=== PATIENT | female | born 1935 | race Two or more races ===

== ENCOUNTER 2024-02-07 15:12 | Inpatient (IN) | payer MEDICARE, OTHER ==
[~2024-02-07] VITALS: Ht 166.4 cm; Wt 66.8 kg
[2024-02-07 16:21] LABS: Urine Bacteria None Seen /hpf (None Seen)
[2024-02-07 16:34] VITALS: PULSE 77; RESP 18; O2SAT 93
[2024-02-07] MEDS: ONDANSETRON HCL 4 MG/2 ML VIAL IV ONE (16:49)
[2024-02-07] MEDS: fentaNYL CITRATE 100 MCG/2 ML VL IV ONE ×3 (16:50→20:26)
[2024-02-07 17:07] LABS: Urine Blood Negative /uL (Negative); Urine Clarity Clear (Clear); Urine Color Light-Yellow (Yellow); Urine Protein, UAD Negative (Negative); Urine Specific Gravity 1.014 (1.001-1.035); Urine Urobilinogen Normal (Negative); Urine WBC 1 /hpf (0 - 5); Urine pH 5.5 (5.0-9.0)
[2024-02-07 17:26] LABS: Basophils # (auto) 0 10 ^3/uL (0-0.2); Basophils % (auto) 0.1 % (0.0-2.0); Eosinophils # (auto) 0.2 10 ^3/uL (0-0.8); Eosinophils % (auto) 2.3 % (0.0-7.0); Hematocrit 42.8 % (36.0-46.0); Hemoglobin 14.7 g/dL (12.2-16.2); Lymphocytes # (auto) 1.3 10 ^3/uL (0.4-5.4); Lymphocytes % (auto) 14.7 % (10.0-50.0); Mean Corpuscular Hemoglobin 31.2 pg (28.0-32.0); Mean Corpuscular Hgb Conc. 34.3 g/dL (32.0-36.0); Monocytes # (auto) 0.6 10 ^3/uL (0-1.3); Monocytes % (auto) 6.6 % (0.0-12.0); Neutrophils # (auto) 6.9 10 ^3/uL (1.6-8.6); Neutrophils % (auto) 76.3 % (37.0-80.0); Platelet Count (auto) 327 10^3/uL (140-450); Red Cell Distribution Width 13.1 % (11.8-14.3)
[2024-02-07 17:46] LABS: Alanine Aminotransferase 28 U/L (7-40); Albumin 4.4 g/dL (3.2-4.8); Alkaline Phosphatase 61 U/L (46-116); Anion Gap 6 (5-15); Aspartate Aminotransferase 36 U/L (13-40); BUN/Creatinine Ratio 23.4 (10.0-20.0); Bilirubin, Total 0.5 mg/dL (0.2-1.0); Blood Urea Nitrogen 18 mg/dL (9-23); Calcium 9.8 mg/dL (8.7-10.4); Carbon Dioxide 25 mmol/L (20-31); Chloride 104 mmol/L (98-107); Glucose 144 mg/dL (74-106); Potassium 4.2 mmol/L (3.5-5.1); Sodium 135 mmol/L (136-145); Total Protein 7.7 g/dL (5.7-8.2)
[2024-02-07] MEDS ORDERED: CARV6.2517 PO (19:07)
[2024-02-07] MEDS ORDERED: CLON0.1T PO (19:07)
[2024-02-07] MEDS ORDERED: VALS40TA2 PO (19:07)
[2024-02-07] MEDS ORDERED: MECL-90 PO (19:11)
[2024-02-07] MEDS ORDERED: MULTTAB99 PO (19:11)
[2024-02-07] MEDS ORDERED: LEVO50TA7 PO (19:11)
[2024-02-07] MEDS ORDERED: OMEG-20 PO (19:11)
[2024-02-07] MEDS ORDERED: ASPI1TAB20 PO (19:11)
[2024-02-07] MEDS ORDERED: CHOL20007 PO (19:11)
[2024-02-07] MEDS ORDERED: FENO160T PO (19:11)
[2024-02-07] MEDS ORDERED: CALCTAB63 PO (19:13)
[2024-02-07] MEDS ORDERED: ZINC100T5 PO (19:13)
[2024-02-07] MEDS ORDERED: BENF150C PO (19:14)
[2024-02-07] MEDS ORDERED: [UNRECOGNIZED DRUG - CODE] PO (19:18)
[2024-02-07 20:30] VITALS: PULSE 84; RESP 16; O2SAT 96
[2024-02-07] MEDS: SODIUM CHLORIDE 0.9% 1,000 ML IV SCH (22:15)
[2024-02-08] VITALS (7 sets, daily range): BP systolic 126–162; BP diastolic 54–68; PULSE 65–81; RESP 16–19; TEMP 97.9–98.7; O2SAT 92–100
[2024-02-08] MEDS: MORPHINE SULFATE INJ 2 MG/ml SYRG IV PRN ×2 (00:12→16:49)
[2024-02-08] MEDS: MORPHINE SULFATE 4 MG/ML SYR/VIAL IV ONE (01:43)
[2024-02-08] MEDS: ONDANSETRON HCL 4 MG/2 ML VIAL IV PRN (01:44)
[2024-02-08 02:13] LABS: Anion Gap 5 (5-15); Carbon Dioxide 27 mmol/L (20-31); Chloride 103 mmol/L (98-107); Potassium 4.2 mmol/L (3.5-5.1); Sodium 135 mmol/L (136-145)
[2024-02-08 02:14] LABS: Calcium 9.7 mg/dL (8.7-10.4)
[2024-02-08 02:19] LABS: BUN/Creatinine Ratio 17.9 (10.0-20.0); Blood Urea Nitrogen 12 mg/dL (9-23); Glucose 165 mg/dL (74-106)
[2024-02-08] MEDS: hydrALAZINE HCL 20 MG/ML VL IV PRN (03:57)
[2024-02-08] MEDS ORDERED: ACET-1080 PO (04:06)
[2024-02-08] MEDS: VALSARTAN 80 MG TAB PO ONE (21:53)
[2024-02-09 01:00] VITALS: BP 151/60; PULSE 75; RESP 17; TEMP 98.6; O2SAT 93
[2024-02-09 05:00] VITALS: BP 128/74; PULSE 72; RESP 18; TEMP 98.3; O2SAT 9
[2024-02-09 08:35] VITALS: BP 153/69; PULSE 77; RESP 18; TEMP 97.5; O2SAT 97
[2024-02-09] MEDS ORDERED: MORPHINE SULF PF 5 MG/10 ML VIAL ONE (09:31)
[2024-02-09] MEDS ORDERED: KETOROLAC TROMETH 30 MG/ML 1ML VIAL ONE (09:31)
[2024-02-09 12:47] VITALS: BP 126/62; PULSE 82; RESP 17; TEMP 97.5; O2SAT 98
[2024-02-09 20:00] VITALS: PULSE 83; RESP 18; O2SAT 90
[2024-02-09 20:50] VITALS: BP 170/83; PULSE 83; RESP 18; TEMP 98.9; O2SAT 90
[2024-02-10] VITALS (7 sets, daily range): BP systolic 130–175; BP diastolic 69–85; PULSE 63–90; RESP 16–20; TEMP 97.9–98.7; O2SAT 90–100
[2024-02-10 07:01] LABS: INR 1.06 (0.9-1.15); Partial Thromboplastin Time 29.3 SEC (24.5-34.5); Prothrombin Time 11.2 sec (9.3-11.8)
[2024-02-10] MEDS ORDERED: MORPHINE SULF PF 5 MG/10 ML VIAL ONE (14:57)
[2024-02-10] MEDS ORDERED: KETOROLAC TROMETH 30 MG/ML 1ML VIAL ONE (14:57)
[2024-02-10] MEDS ORDERED: MIDAZOLAM HCL 2MG/2ML 2ml VIAL (1mg/ml) ONE (15:16)
[2024-02-10] MEDS ORDERED: fentaNYL CITRATE 100 MCG/2 ML VL ONE (15:17)
[2024-02-10] MEDS ORDERED: ONDANSETRON HCL 4 MG/2 ML VIAL ONE (15:52)
[2024-02-10] MEDS ORDERED: DexAMETHasone SOD PHOS 10MG/1ML VIAL INJ ONE (15:52)
[2024-02-10] MEDS: ceFAZolin 1GM/50ML 50 ML IV SCH (18:23)
[2024-02-11] VITALS (7 sets, daily range): BP systolic 146–162; BP diastolic 59–71; PULSE 84–110; RESP 16–20; TEMP 97.3–99.8; O2SAT 91–98
[2024-02-11] MEDS: ACETAMINOPHEN 325 MG TAB PO PRN (00:35)
[2024-02-11] MEDS: ENOXAPARIN SOD 40 MG/0.4 ML SYRINGE SC SCH (10:05)
[2024-02-11 12:02] LABS: Basophils # (auto) 0 10 ^3/uL (0-0.2); Basophils % (auto) 0.1 % (0.0-2.0); Eosinophils # (auto) 0.1 10 ^3/uL (0-0.8); Eosinophils % (auto) 0.7 % (0.0-7.0); Hemoglobin 13.6 g/dL (12.2-16.2); Lymphocytes # (auto) 2.1 10 ^3/uL (0.4-5.4); Lymphocytes % (auto) 11.7 % (10.0-50.0); Mean Corpuscular Hemoglobin 31.2 pg (28.0-32.0); Mean Corpuscular Volume 91.7 fL (80.0-100.0); Monocytes # (auto) 1.2 10 ^3/uL (0-1.3); Monocytes % (auto) 6.7 % (0.0-12.0); Neutrophils # (auto) 14.5 10 ^3/uL (1.6-8.6); Neutrophils % (auto) 80.8 % (37.0-80.0); Platelet Count (auto) 394 10^3/uL (140-450); Red Blood Cells 4.37 10^6/uL (4.0-5.20); Red Cell Distribution Width 13.4 % (11.8-14.3)
[2024-02-11] MEDS: HYDROcodone-ACET 5/325MG TAB PO PRN (18:31)
[2024-02-12] VITALS (7 sets, daily range): BP systolic 99–176; BP diastolic 54–69; PULSE 54–92; RESP 17–20; TEMP 97.7–99.5; O2SAT 93–99
[2024-02-12 06:42] LABS: Basophils # (auto) 0 10 ^3/uL (0-0.2); Basophils % (auto) 0.2 % (0.0-2.0); Eosinophils # (auto) 0.4 10 ^3/uL (0-0.8); Eosinophils % (auto) 3.2 % (0.0-7.0); Hematocrit 34.6 % (36.0-46.0); Hemoglobin 11.5 g/dL (12.2-16.2); Lymphocytes # (auto) 1.4 10 ^3/uL (0.4-5.4); Lymphocytes % (auto) 12.8 % (10.0-50.0); Mean Corpuscular Hemoglobin 30.8 pg (28.0-32.0); Mean Corpuscular Hgb Conc. 33.1 g/dL (32.0-36.0); Mean Corpuscular Volume 92.9 fL (80.0-100.0); Monocytes # (auto) 0.8 10 ^3/uL (0-1.3); Monocytes % (auto) 7.7 % (0.0-12.0); Neutrophils # (auto) 8.4 10 ^3/uL (1.6-8.6); Neutrophils % (auto) 76.1 % (37.0-80.0); Nucleated Red Blood Cells % 0.1 %; Platelet Count (auto) 276 10^3/uL (140-450); Red Blood Cells 3.73 10^6/uL (4.0-5.20); Red Cell Distribution Width 13.3 % (11.8-14.3)
[2024-02-12] MEDS ORDERED: HYDR-4902 PO (11:40)
[2024-02-12] MEDS ORDERED: RIVA10TA PO (11:40)
[2024-02-13 01:00] VITALS: BP 176/71; PULSE 89; RESP 19; TEMP 99; O2SAT 96
[2024-02-13 05:00] VITALS: BP 152/57; PULSE 80; RESP 19; TEMP 98.2; O2SAT 97
[2024-02-13] MEDS: TRANEXAMIC ACID 20 ML ONE ×2 (07:49→07:50)
[2024-02-13] MEDS: BUPIVACAINE 0.25% INJ 50ML VIAL ONE ×2 (07:49→07:50)
[2024-02-13] MEDS: ceFAZolin 1GM/50ML 100 ML IV ONE (07:50)
[2024-02-13] MEDS: ROPIVACAINE 0.5% (5MG/ML) 20ML AMPULE IJ ONE (07:50)
[2024-02-13] MEDS: VANCOMYCIN HCL 1000 MG VL ONE ×2 (07:50)
[2024-02-13 08:00] VITALS: PULSE 80; RESP 18; O2SAT 96
[2024-02-13 08:28] VITALS: BP 182/87; PULSE 89; RESP 16; TEMP 98; O2SAT 94
[2024-02-13 11:15] VITALS: BP 182/87
[2024-02-13 12:20] VITALS: BP 163/62; PULSE 87; RESP 15; TEMP 98.2; O2SAT 94
== END 2024-02-13 14:35 | disposition home health service (06) | DRG 522 ==
LOC: EDBD 15:12 → ER 15:26 → OVERFLOW 22:27 → EAST 22:27
PROVIDERS: ADMIT Nurse Practitioner; ATTEND Family Medicine
PROC: 0SRS0J9 Replacement of Left Hip Joint, Femoral Surface with Synthetic Substitute, Cemented, Open Approach (ICD-10-PCS; principal; 2024-02-10 15:08)
DX: S72.002A Fracture of unspecified part of neck of left femur, initial encounter for closed fracture (principal); J98.11 Atelectasis; I50.32 Chronic diastolic (congestive) heart failure; K59.00 Constipation, unspecified; K80.20 Calculus of gallbladder without cholecystitis without obstruction; M81.0 Age-related osteoporosis without current pathological fracture; N83.202 Unspecified ovarian cyst, left side; R26.9 Unspecified abnormalities of gait and mobility; R26.89 Other abnormalities of gait and mobility; I16.0 Hypertensive urgency; I11.0 Hypertensive heart disease with heart failure; M19.09 Primary osteoarthritis, other specified site; Z90.12 Acquired absence of left breast and nipple; Z96.641 Presence of right artificial hip joint; Z80.8 Family history of malignant neoplasm of other organs or systems; Z82.49 Family history of ischemic heart disease and other diseases of the circulatory system; Z85.3 Personal history of malignant neoplasm of breast; Z88.2 Allergy status to sulfonamides; Z86.73 Personal history of transient ischemic attack (TIA), and cerebral infarction without residual deficits; W01.0XXA Fall on same level from slipping, tripping and stumbling without subsequent striking against object, initial encounter; Y93.89 Activity, other specified; Y92.89 Other specified places as the place of occurrence of the external cause; Y99.8 Other external cause status
CPT/HCPCS: 36415; 71045; 72170; 73120; 74176; 80048; 80053; 81001; 85025; 85610; 85730; 86850; 86900; 86901; 93306; 97110; 97116; 97163; 97530; A4565; G0378; J1100; J1885; J2250; J2405; J3490

== ENCOUNTER 2024-10-16 08:17 | Inpatient (IN) | payer MEDICARE, OTHER ==
[~2024-10-16] VITALS: Ht 165.1 cm; Wt 69.4 kg
[~2024-10-16 08:17] MED LIST: ACET-1080 PO; ASPI1TAB20 PO; BENF150C PO; CALCTAB63 PO; CARV6.2517 PO; CHOL20007 PO; CLON0.1T PO; FENO160T PO; HYDR-4902 PO; LEVO50TA7 PO; MECL-90 PO; MULTTAB99 PO; OMEG-20 PO; RIVA10TA PO; VALS40TA2 PO; ZINC100T5 PO; [UNRECOGNIZED DRUG - CODE] PO
[2024-10-16 09:24] VITALS: PULSE 59; RESP 17; O2SAT 95
[2024-10-16 09:51] LABS: Basophils # (auto) 0 10 ^3/uL (0-0.2); Basophils % (auto) 0.3 % (0.0-2.0); Eosinophils # (auto) 0.2 10 ^3/uL (0-0.8); Eosinophils % (auto) 1.7 % (0.0-7.0); Hematocrit 39.9 % (36.0-46.0); Hemoglobin 13.9 g/dL (12.2-16.2); Lymphocytes # (auto) 1.2 10 ^3/uL (0.4-5.4); Lymphocytes % (auto) 11.7 % (10.0-50.0); Mean Corpuscular Hemoglobin 31.4 pg (28.0-32.0); Mean Corpuscular Hgb Conc. 34.9 g/dL (32.0-36.0); Mean Corpuscular Volume 89.8 fL (80.0-100.0); Monocytes # (auto) 0.4 10 ^3/uL (0-1.3); Monocytes % (auto) 3.8 % (0.0-12.0); Neutrophils # (auto) 8.4 10 ^3/uL (1.6-8.6); Neutrophils % (auto) 82.5 % (37.0-80.0); Platelet Count (auto) 242 10^3/uL (140-450); Red Blood Cells 4.45 10^6/uL (4.0-5.20); Red Cell Distribution Width 12.9 % (11.8-14.3); White Blood Cell 10.2 10^3/uL (4.4-10.8)
--- NOTE | 2024-10-16 09:55 | ED.PDOC ---
Musculoskeletal HPI Comments 89 y.o female with PMHx of sciatica, osteoporosis, arthritis, presents to the ED via EMS for a chief complaint of right lower back/buttocks pain radiating down her right leg localized to the posterior region. Patient reports getting a Toradol injection 2 days ago by PCP and prescribed Aleve and Tramadol. Patient felt relieve s/p receiving injection and when taking her pain medication with last Tramadol dose being at 0600 but states pain is coming back, described as sharp shooting sensation which she is unable to bear any weight to her right leg. She denies any recent falls or injuries to pain site. EMS administrated 200mcg of Fentanyl en route and patient reported major relief. Chief Complaint: Lower Extremity Time Seen by MD: 09:21 Primary Care Provider: MARILEE Reviewed Notes: Nurses Notes, Data Analytics Chief Scientist Notes, Medications, Allergies Allergies: Uncoded Allergies: SULFA (Allergy, Unknown, 02/07/24) Home Meds Active Scripts Hydrocodone-Acetaminophen (Hydrocodone Bitartrate/AC 5-325 mg) 1 Tab Tab, 1 TAB PO QID PRN, #30 TAB Prov:MARY KATE RIZVI MD 02/12/24 Rivaroxaban (XARELTO) 10 Mg Tab, 1 TAB PO DAILY, #30 TAB Prov:MARY KATE RIZVI MD 02/12/24 Reported Medications Acetaminophen (Tylenol 8 Hour Arthritis) 650 Mg Tab, 1300 MG PO Q8HR for Arthritis dose per patient, TAB 02/08/24 Lysine (L-Lysine) 1,000 Mg Tab, 1000 MG PO DAILY, TAB 02/07/24 Benfotiamine (BENFOTIAMINE) 150 Mg Cap, 300 MG PO DAILY, CAP 02/07/24 Zinc Gluconate (ZINC) 100 Mg Tab, 50 MG PO DAILY, TAB 02/07/24 Calcium Citrate-Vitamin D (Calcium Citrate + D 315-5 mg-Mcg) 1 Tab Tab, 1 TAB PO DAILY@BREAKFAST, TAB 02/07/24 Cholecalciferol (VITAMIN D3) 2,000 Unit Tab, 1 TAB PO BID, #30 TAB 5 Refills 02/07/24 [place]wood-3 Fatty Acids (FISH OIL) 1,000 Mg Cap, 2000 MG PO BID, CAP 02/07/24 Multiple Vitamin (Mvi Tab) 1 Tab Tb, 1 TAB PO DAILY, TAB 02/07/24 Aspirin (Aspir-81) 81 Mg Tab, 1 TAB PO DAILY, #30 TAB 5 Refills 02/07/24 Meclizine Hcl (Meclizine Hcl) 25 Mg Tab, 25 MG PO DAILY for 30 Days, MG 02/07/24 Fenofibrate (Fenofibrate) 160 Mg Tab, 160 MG PO DAILY, TAB 02/07/24 Levothyroxine Sodium (Levothyroxine Sodium) 50 Mcg Tab, 50 MCG PO QAM for 30 Days, MCG 02/07/24 Carvedilol (Coreg) 6.25 Mg Tab, 12.5 MG PO BID, TAB 02/07/24 Valsartan (Diovan) 40 Mg Tab, 160 MG PO BID, TAB 02/07/24 Clonidine Hydrochloride (Clonidine Hcl) 0.1 Mg Tab, 0.1 MG PO BID for 30 Days, MG 02/07/24 Information Source: Patient Mode of Arrival: EMS Location: Right Extremity Location: Back, Leg Timing: Hours Severity: Moderate Able to Move Extremity: No Bear Weight: Limited Pain: Severe Mechanism: None Circumstances: Arthritis Symptoms: Pain DVT Risk Factors: NONE History of: Arthritis Associated signs and symptoms: Leg pain Past Medical History 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 [employer] History Family History Family History: Reviewed,noncontributory to illness Social History Smoker: Non-Smoker Alcohol: Denies ETOH Use Drugs: Denies Drug Use Lives In: Home Constitutional: denies: chills, diaphoresis, fatigue, fever, malaise, sweats, weakness, others EENTM: denies: blurred vision, double vision, ear bleeding, ear discharge, ear drainage, ear pain, ear ringing, eye pain, eye redness, hearing loss, mouth pain, mouth swelling, nasal discharge, nose bleeding, nose congestion, nose pain, photophobia, tearing, throat pain, throat swelling, voice changes, others Respiratory: denies: cough, hemoptysis, orthopnea, SOB at rest, shortness of breath, SOB with excertion, stridor, wheezing, others Cardiovascular: denies: chest pain, dizzy spells, diaphoresis, Dyspnea on exertion, edema, irregular heart beat, left arm pain, lightheadedness, palpitations, PND, syncope, others Gastrointestinal: denies: abdomen distended, abdominal pain, blood streaked bowels, constipated, diarrhea, dysphagia, difficulty swallowing, hematemesis, melena, nausea, poor appetite, poor fluid intake, rectal bleeding, rectal pain, vomiting, others Genitourinary: denies: abnormal vagina bleeding, burning, dyspareunia, dysuria, flank pain, frequency, hematuria, incontinence, pain, , vagina disc harge, urgency, others Neurological: denies: dizziness, fainting, headache, left sided numbness, left sided weakness, numbness, paresthesia, pre-existing deficit, right sided numbness, right sided weakness, seizure, speech problems, tingling, tremors, weakness, others Musculoskeletal: reports: others (right lower back pain radiating to her right leg ); denies: back pain, gout, joint pain, joint swelling, muscle pain, muscle stiffness, neck pain Integumetry: denies: bruises, change in color, change in hair/nails, dryness, laceration, lesions, lumps, rash, wounds, others Allergic/Immunocompromised: denies: Difficulty Healing, Frequent Infections, Hives, Itching, others Hematologic/Lymphatic: denies: anemia, blood clots, easy bleeding, easy bruising, swollen glands, others Endocrine: denies: excessive hunger, excessive sweating, excessive thirst, excessive urination, flushing, intolerance to cold, intolerance to heat, unexplained weight gain, unexplained weight loss, others Psychiatric: denies: anxiety, bipolar disorder, depression, hopeless, panic disorder, schizophrenia, sleepless, suicidal, others All Other Systems: Reviewed and Negative Physical Exam General Appearance: No Apparent Distress, Normal HEENT: Normal ENT Inspection, Pharynx Normal, TMs Normal Neck: Full Range of Motion, Non-Tender, Normal, Normal Inspection Respiratory: Chest Non-Tender, Lungs Clear, No Accessory Muscle Use, No Respiratory Distress, Normal Breath Sounds Cardiovascular: No Edema, No JVD, No Murmur, No Gallop, Normal Peripheral Pulses, Regular Rate/Rhythm Breast Exam: Deferred Gastrointestinal: No Organomegaly, Non Tender, No Pulsatile Mass, Normal Bowel Sounds, Soft Genitalia: Deferred Pelvic: Deferred Rectal: Deferred Extremities: Tender (right paraspinal) Musculoskeletal : Apperance: Normal Neurologic: Alert, retort loader II-XII nml as Tested, No Motor Deficits, Normal Affect, Normal Mood, No Sensory Deficits Cerebellar Function: Normal Reflexes: Normal Skin: Dry, Normal Color, Warm Lymphatic: No Adenopathy Was a procedure done? Was a procedure done?: No Differential Diagnosis EXT Differential Diagnosis: Fracture, Sprain, Dislocation, Strain, Rheumatoid, Neurovascular injury, Arthritis X-Ray, Labs, Meds, VS Vital Signs Date Time Temp Pulse Resp B/P (MAP) Pulse Ox O2 Delivery O2 Flow Rate FiO2 10/16/24 10:50 63 16 153/67 10/16/24 10:20 53 16 162/60 10/16/24 10:00 61 17 161/61 (94) 95 10/16/24 09:24 59 17 95 Room Air* 0 21 10/16/24 09:00 98.1 59 17 160/62 (94) 95 98.1 10/16/24 08:20 98.4 62 18 184/85 (118) 98 98.4 Lab Test 10/16/24 09:38 10/16/24 09:09 Range/Units White Blood Count 10.2 4.4-10.8 10^3/uL Red Blood Count 4.45 4.0-5.20 10^6/uL Hemoglobin 13.9 12.2-16.2 g/dL Hematocrit 39.9 36.0-46.0 % Mean Corpuscular Volume 89.8 80.0-100.0 fL Mean Corpuscular Hemoglobin 31.4 28.0-32.0 pg Mean Corpuscular Hemoglobin Concent 34.9 32.0-36.0 g/dL Red Cell Distribution Width 12.9 11.8-14.3 % Platelet Count 242 140-450 10^3/uL Mean Platelet Volume 6.6 L 6.9-10.8 fL Neutrophils (%) (Auto) 82.5 H 37.0-80.0 % Lymphocytes (%) (Auto) 11.7 10.0-50.0 % Monocytes (%) (Auto) 3.8 0.0-12.0 % Eosinophils (%) (Auto) 1.7 0.0-7.0 % Basophils (%) (Auto) 0.3 0.0-2.0 % Neutrophils # (Auto) 8.4 1.6-8.6 10 ^3/uL Lymphocytes # (Auto) 1.2 0.4-5.4 10 ^3/uL Monocytes # (Auto) 0.4 0-1.3 10 ^3/uL Eosinophils # (Auto) 0.2 0-0.8 10 ^3/uL Basophils # (Auto) 0 0-0.2 10 ^3/uL Nucleated Red Blood Cells 0.0 % Sodium Level 137 136-145 mmol/L Potassium Level 4.8 3.5-5.1 mmol/L Chloride Level 105 98-107 mmol/L Carbon Dioxide Level 23 20-31 mmol/L Anion Gap 9 5-15 Blood Urea Nitrogen 18 9-23 mg/dL Creatinine 0.83 0.550-1.02 mg/dL Glomerular Filtration Rate Calc 68 >90 mL/min BUN/Creatinine Ratio 21.7 H 10.0-20.0 Serum Glucose 128 H 74-106 mg/dL Calcium Level 9.0 8.7-10.4 mg/dL POC Glucose 144 H 70-106 mg/dl Current Medications Medications (Trade) Dose Ordered Sig/Osei Route Start Time Stop Time Status Last Admin Ondansetron HCl (Zofran) 4 mg ONCE ONCE IV 10/16/24 09:30 10/16/24 09:31 DC 10/16/24 10:20 Morphine Sulfate 4 mg ONCE ONCE IV 10/16/24 09:30 10/16/24 09:31 DC 10/16/24 10:20 Time of 1ST Reevaluation: 09:55 Reevaluation 1ST: Unchanged Patient Education/Counseling: Diagnosis, Treatment, Prognosis Family Education/Counseling: No Family Present Departure 1 Departure Time of Disposition: 11:47 (Patient with intractable lower back pain inability to ambulate. We will admit patient for further workup and expert consultation) Impression: Primary Impression: Intractable low back pain Additional Impressions: Right hip pain Unable to ambulate Disposition: ADMITTED INPATIENT Admit to: Med Surg Condition: Serious Critical Care Note Critical Care Time?: No Stability Stability form required: No I personally scribed for FARIDA GUALLPA MD ([email or web address]) on 10/16/24 at 09:55. Elec tronically submitted by Venus Steiner ([facility]). FARIDA GUALLPA MD Oct 16, 2024 09:55
[2024-10-16 09:59] LABS: Chloride 105 mmol/L (98-107); Potassium 4.8 mmol/L (3.5-5.1); Sodium 137 mmol/L (136-145)
[2024-10-16 10:00] LABS: Anion Gap 9 (5-15); Carbon Dioxide 23 mmol/L (20-31)
[2024-10-16 10:05] LABS: BUN/Creatinine Ratio 21.7 (10.0-20.0); Blood Urea Nitrogen 18 mg/dL (9-23)
[2024-10-16 10:10] LABS: Glucose 128 mg/dL (74-106)
[2024-10-16] MEDS: MORPHINE SULFATE 4 MG/ML SYR/VIAL IV ONE (10:20)
[2024-10-16] MEDS: ONDANSETRON HCL 4 MG/2 ML VIAL IV ONE (10:20)
--- NOTE | 2024-10-16 11:06 | DVH ---
INDICATION: lower back and right hip pain TECHNIQUE: 4 views of the lumbar spine were obtained. COMPARISON: None FINDINGS: There are no acute fractures or subluxations. Multilevel degenerative changes of the spine. Grade 2 anterolisthesis of L5 on S1. Degenerative disc space narrowing at L5-S1. Large volume colonic stool. IMPRESSION: No acute fracture or subluxation.
--- NOTE | 2024-10-16 11:07 | DVH ---
CLINICAL INDICATION: right hip pain TECHNIQUE: XY R HIP COMPLETE XRAY Comparison: None FINDINGS/IMPRESSION: : Bilateral hip arthroplasty. Nonspecific lucency associated with the intertrochanteric right proximal femur. This is most likely w ithin normal limits but can be seen in loosening/particle disease. Clinical correlation advised.
[2024-10-16 12:27] LABS: Urine Bacteria None Seen /hpf (None Seen)
[2024-10-16 12:41] LABS: Urine Blood Negative /uL (Negative); Urine Clarity Clear (Clear); Urine Color Light-Yellow (Yellow); Urine Protein, UAD Negative (Negative); Urine Specific Gravity 1.015 (1.001-1.035); Urine Squamous Epithelial Cell None Seen /hpf (<5); Urine Urobilinogen Normal (Negative); Urine WBC 3 /HPF (0-5); Urine pH 6.5 (5.0-9.0)
[2024-10-16] MEDS ORDERED: DOCUSATE SOD 100 MG CAP PO PRN (13:15)
[2024-10-16] MEDS ORDERED: ONDANSETRON HCL 4 MG/2 ML VIAL IV PRN (13:15)
--- NOTE | 2024-10-16 13:22 | DVHHP2 ---
History of Present Illness Reason for Visit: right hip/leg pain History of Present Illness Lucrecia Colvin is an 89-year-old female with a past medical history of hypertension, osteoporosis, arthritis, and sciatica pain, who came to the hospital due to right hip/leg pain. Patient states she get sciatica nerve pain on her right side, but this was significantly worse. The pain started last night. She put some cream on her hip and was able to sleep, but this morning it worsened to the point that she is not able to stand or ambulate. She states the pain has never been that significant before. Cardiovascular: HTN Musculoskeletal: Osteoarthritis Past Surgical History: Mastectomy (left), Total hip replacement (bilateral) Smoke: No ALCOHOL: none Drugs: None Lives: with Family Domestic Violence: Neg Review of Systems Constitutional: No: Fever, Chills, Sweats, Weakness, Malaise, Other Eyes: No: Pain, Vision change, Conjunctivae inflammation, Eyelid inflammation, Other, Redness ENT: No: Ear pain, Ear discharge, Nose pain, Nose discharge, Nose congestion, Mouth pain, Mouth swelling, Throat pain, Throat swelling, Other Respiratory: No: Cough, Dry, Shortness of breath, SOB with excertion, Wheezing, Hemoptysis, Pleuritic Pain, Sputum, Wheezing, Other Cardiovascular: No: Chest Pain, Palpitations, Orthopnea, Paroxysmal Noc. Dyspnea, Edema, Lt Headedness, Other Gastrointestinal: No: Nausea, Vomiting, Abdominal Pain, Diarrhea, Constipation, Melena, Hematochezia, Other Genitourinary: No Dysuria, No Frequency, No Incontinence, No Hematuria, No Retention, No Other Musculoskeletal: back pain (low back), leg pain (right leg/hip); No: other, neck pain, shoulder pain, arm pain, hand pain, foot pain Skin: No: Rash, Lesions, Jaundice, Bruising, Other Neurological: Weakness; No: Numbness, Incoordination, Change in speech, Confusion, Seizures, Other Allergies: Uncoded Allergies: SULFA (Allergy, Unknown, 02/07/24) Medications Current Medications Medications Dose Ordered Sig/Osei Route Start Time Stop Time Status Last Admin Dose Admin Sodium Chloride 10 ml Q8HR IV 10/16/24 14:00 UNV Acetaminophen/ Hydrocodone Bitart 1 tab Q4HP PRN PO 10/16/24 13:15 UNV Ondansetron HCl 4 mg Q4HP PRN IV 10/16/24 13:15 UNV Docusate Sodium 100 mg BIDPRN PRN PO 10/16/24 13:15 UNV Acetaminophen 650 mg Q6HP PRN PO 10/16/24 13:15 UNV Morphine Sulfate 2 mg Q4HPRN PRN IV 10/16/24 13:15 UNV Exam Vital Signs Vital Signs Date Time Temp Pulse Resp B/P (MAP) Pulse Ox O2 Delivery O2 Flow Rate FiO2 10/16/24 12:00 58 10/16/24 12:00 98.0 17 152/57 (88) 95 98.0 10/16/24 09:24 Room Air* 0 21 General Appearance: Alert, Oriented X3, Cooperative HEENT: Atraumatic, PERRLA, Mucous membr. moist/pink Respiratory: Clear to auscultation, Normal air movement Cardiovascular: Normal S1, Normal S2, No murmurs, Other (SB) Abdominal: Normal bowel sounds, Soft, No tenderness Extremities: No clubbing, No cyanosis, No edema, Normal pulses, Other (Pain in rught hip and leg, and low back) Skin: No rashes, No breakdown, No significant lesion Neuro: Normal speech, Other (unable to ambulate due to pain) Psych/Mental Status: Mental status NL, Mood NL Labs/Xrays Labs Test 10/16/24 12:20 10/16/24 09:38 10/16/24 09:09 Range/Units Urine Color Light-yellow Yellow Urine Clarity Clear Clear Urine pH 6.5 5.0-9.0 Urine Specific [place] 1.015 1.001-1.035 Urine Protein Negative Negative Urine Ketones Negative Negative Urine Blood Negative Negative /uL Urine Nitrite Negative Negative Urine Bilirubin Negative Negative Urine Urobilinogen Normal Negative mg/dL Urine Leukocyte Esterase Negative Negative /uL Urine RBC 1 0 - 4 /hpf Urine Microscopic WBC 3 0-5 /HPF Urine Squamous Epithelial Cells None seen <5 /hpf Urine Bacteria None seen None Seen /hpf Urine Glucose Normal Normal mg/dL White Blood Count 10.2 4.4-10.8 10^3/uL Red Blood Count 4.45 4.0-5.20 10^6/uL Hemoglobin 13.9 12.2-16.2 g/dL Hematocrit 39.9 36.0-46.0 % Mean Corpuscular Volume 89.8 80.0-100.0 fL Mean Corpuscular Hemoglobin 31.4 28.0-32.0 pg Mean Corpuscular Hemoglobin Concent 34.9 32.0-36.0 g/dL Red Cell Distribution Width 12.9 11.8-14.3 % Platelet Count 242 140-450 10^3/uL Mean Platelet Volume 6.6 L 6.9-10.8 fL Neutrophils (%) (Auto) 82.5 H 37.0-80.0 % Lymphocytes (%) (Auto) 11.7 10.0-50.0 % Monocytes (%) (Auto) 3.8 0.0-12.0 % Eosinophils (%) (Auto) 1.7 0.0-7.0 % Basophils (%) (Auto) 0.3 0.0-2.0 % Neutrophils # (Auto) 8.4 1.6-8.6 10 ^3/uL Lymphocytes # (Auto) 1.2 0.4-5.4 10 ^3/uL Monocytes # (Auto) 0.4 0-1.3 10 ^3/uL Eosinophils # (Auto) 0.2 0-0.8 10 ^3/uL Basophils # (Auto) 0 0-0.2 10 ^3/uL Nucleated Red Blood Cells 0.0 % Sodium Level 137 136-145 mmol/L Potassium Level 4.8 3.5-5.1 mmol/L Chloride Level 105 98-107 mmol/L Carbon Dioxide Level 23 20-31 mmol/L Anion Gap 9 5-15 Blood Urea Nitrogen 18 9-23 mg/dL Creatinine 0.83 0.550-1.02 mg/dL Glomerular Filtration Rate Calc 68 >90 mL/min BUN/Creatinine Ratio 21.7 H 10.0-20.0 Serum Glucose 128 H 74-106 mg/dL Calcium Level 9.0 8.7-10.4 mg/dL POC Glucose 144 H 70-106 mg/dl TECHNIQUE: XY R HIP COMPLETE X RAY FINDINGS/IMPRESSION: : Bilateral hip arthroplasty. Nonspecific lucency associated with the intertrochanteric right proximal femur. This is most likely within normal limits but can be seen in loosening/particle disease. Clinical correlation advised. X-RAY 4 views of the lumbar spine were obtained. FINDINGS: There are no acute fractures or subluxations. Multilevel degenerative changes of the spine. Grade 2 anterolisthesis of L5 on S1. Degenerative disc space narrowing at L5-S1. Large volume colonic stool. IMPRESSION: No acute fracture or subluxation. Assessment/Plan Assessment/Plan Assessment: Unable to ambulate, Intractable right hip/leg pain, Hypertension, Sciatica nerve pain, Plan: Admit to Med-Surg, Physical therapy evaluation and treatment, Right hip CT scan, Pain management, Home medications reconciled, Plan discussed with: Patient My Orders Orders - AGATHA SANTOS Procedure Category Date Status Time 2 Gm Sodium Diet DIET 10/16/24 Transmitted Lunch Admit ADMIT 10/16/24 Transmitted 13:03 Code Status CODE 10/16/24 Transmitted 13:03 Sodium Chloride Lock PHA 10/16/24 Logged (Saline Lock Ns) 14:00 Hydrocodone-Acet PHA 10/16/24 Logged 5/325mg Tab ([place] 13:15 Ondansetron Hcl PHA 10/16/24 Logged (Zofran) 13:15 Docusate Sodium PHA 10/16/24 Logged Capsule (Colace 13:15 Complete Blood Count LAB 10/17/24 Verified 04:00 Comprehensive LAB 10/17/24 Verified Metabolic Panel 04:00 Pt Request For Service PT 10/16/24 Logged 13:03 Condition: Serious MARY 10/16/24 In Process 13:03 Acetaminophen Tablet PHA 10/16/24 Logged (Tylenol Tablet) 13:15 Morphine Sulfate PHA 10/16/24 Logged Injection 13:15 Ketorolac Injection PHA 10/16/24 Transmitted (Toradol Injection) 13:15 Date of Service: Oct 16, 2024 Billing Provider: AGATHA SANTOS Common Visit Codes: [id number] INP/OBS CARE (MOD) AGATHA SANTOS Oct 16, 2024 13:22
[2024-10-16] MEDS: SODIUM CHLOR 0.9% PF (SALINE LOCK) 10ML VIAL/SYR IV SCH (14:02)
--- NOTE | 2024-10-16 14:44 | DVH ---
CLINICAL INFORMATION: Pain, unable to stand or walk. TECHNIQUE: Axial CT images of the right hip were obtained without IV contrast. Coronal and sagittal r eformatted images were obtained, reviewed, and stored. All CT scans at this medical facility are per formed using dose modulation techniques as appropriate to a performed exam including the following: A utomated exposure control was utilized; adjustment of the MA and/or KV according to patient size; and use of iterative reconstruction technique. CTDIvol = 20.75 mGy DLP = 685.64 mGy-cm COMPARISON: Radiographs dated 10/16/2024. FINDINGS: Postsurgical changes of cemented right hip bipolar hemiarthroplasty. The prosthesis appear s intact and in satisfactory alignment and position. Beam hardening artifact from the prosthesis limi ts evaluation of adjacent structures. There is Questionable subtle cortical deformity of the junction of the right superior pubic ramus and anterior acetabulum seen on the coronal images only (series 60 1 images 28-30). Subtle fracture can not be excluded although not correlated on additional imaging p lanes and there is prominent beam hardening artifact near this location from the prosthesis, limiting evaluation. No other CT evidence for acute fracture is seen. No visualized CT evidence for prosthesi s loosening is seen. No abnormal lucency of the cement prosthesis interface or bone cement interface. The rest of the visualized osseous structures appear intact without evidence of acute fracture. No a cute soft tissue abnormality identified. There is moderate to marked fatty atrophy of the gluteus min imus muscle likely moderate fatty atrophy of the right gluteus medius muscle. IMPRESSION: 1. Postsurgical changes of right hip bipolar hemiarthroplasty. 2. Questionable subtle cortical deformity of the junction of the right superior pubic ramus and anter ior right acetabulum. Subtle nondisplaced fracture not excluded in the appropriate clinical setting. Correlate with clinical findings. If clinically indicated, MRI could be considered to further evalua te. 3. No other evidence of acute fracture. 4. No definite CT evidence for prosthesis loosening or other prosthesis complication. 5. Fatty atrophy of the gluteus medius and minimus muscles as described above.
[2024-10-16] MEDS: KETOROLAC TROMETH 30 MG/ML 1ML VIAL IV PRN (15:12)
[2024-10-16] MEDS ORDERED: OMEP20TA PO (15:36)
[2024-10-16] MEDS ORDERED: ZINC50TA7 PO (15:36)
[2024-10-16] MEDS: cloNIDine HCL 0.1 MG TAB PO ONE (16:25)
[2024-10-16 17:00] VITALS: BP 146/55; PULSE 57; RESP 18; TEMP 97.6; O2SAT 94
[2024-10-16 21:00] VITALS: BP 146/55; PULSE 57; RESP 17; TEMP 97.7; O2SAT 96
[2024-10-16] MEDS: HYDROcodone-ACET 5/325MG TAB PO PRN (22:00)
[2024-10-17 01:00] VITALS: BP 142/39; PULSE 56; RESP 17; TEMP 97.4; O2SAT 99
[2024-10-17 05:00] VITALS: BP 180/67; PULSE 60; RESP 17; TEMP 97.4; O2SAT 94
[2024-10-17] MEDS: hydrALAZINE HCL 20 MG/ML VL IV PRN (06:07)
[2024-10-17 06:47] LABS: Basophils # (auto) 0 10 ^3/uL (0-0.2); Basophils % (auto) 0.1 % (0.0-2.0); Eosinophils # (auto) 0.3 10 ^3/uL (0-0.8); Eosinophils % (auto) 4.3 % (0.0-7.0); Hematocrit 40.6 % (36.0-46.0); Hemoglobin 14.1 g/dL (12.2-16.2); Lymphocytes # (auto) 1.4 10 ^3/uL (0.4-5.4); Lymphocytes % (auto) 23.5 % (10.0-50.0); Mean Corpuscular Hemoglobin 31.3 pg (28.0-32.0); Mean Corpuscular Hgb Conc. 34.7 g/dL (32.0-36.0); Mean Corpuscular Volume 90.1 fL (80.0-100.0); Monocytes # (auto) 0.5 10 ^3/uL (0-1.3); Neutrophils # (auto) 3.9 10 ^3/uL (1.6-8.6); Neutrophils % (auto) 64.1 % (37.0-80.0); Platelet Count (auto) 240 10^3/uL (140-450)
[2024-10-17 06:55] LABS: Alanine Aminotransferase 15 U/L (7-40); Albumin 4.2 g/dL (3.2-4.8); Anion Gap 7 (5-15); Aspartate Aminotransferase 19 U/L (<34); BUN/Creatinine Ratio 22.5 (10.0-20.0); Bilirubin, Total 0.5 mg/dL (0.2-1.0); Blood Urea Nitrogen 18 mg/dL (9-23); Calcium 9.4 mg/dL (8.7-10.4); Carbon Dioxide 26 mmol/L (20-31); Chloride 105 mmol/L (98-107); Potassium 4.6 mmol/L (3.5-5.1); Sodium 138 mmol/L (136-145); Total Protein 6.7 g/dL (5.7-8.2)
[2024-10-17 06:57] LABS: Alkaline Phosphatase 36 U/L (46-116); Glucose 110 mg/dL (74-106)
[2024-10-17] MEDS: cloNIDine HCL 0.1 MG TAB PO SCH ×2 (07:45→18:42)
[2024-10-17] MEDS: VALSARTAN 80 MG TAB PO SCH ×2 (07:46→18:42)
[2024-10-17] MEDS: CARVEDILOL 12.5 MG TAB PO SCH ×2 (08:53→22:55)
[2024-10-17] MEDS: MORPHINE SULFATE INJ 2 MG/ml SYRG IV PRN (12:28)
[2024-10-17 13:00] VITALS: BP 159/56; PULSE 62; RESP 18; TEMP 97.9; O2SAT 95
--- NOTE | 2024-10-17 16:53 | DVHPN2 ---
Subjective Seen and examined at bedside, patient is c/o of severe pain. Reviewed CT Scan. Await Ortho Consult. Spouse at bedside. Changes from previous H/P or p: No Changes Eyes: No Pain, No Vision change, No Conjunctivae inflammation, No Eyelid inflammation, No Other, No Redness ENT: No Ear pain, No Ear discharge, No Nose pain, No Nose discharge, No Nose congestion, No Mouth pain, No Mouth swelling, No Throat pain, No Throat swelling, No Other Cardiovascular: No Chest Pain, No Palpitations, No Orthopnea, No Paroxysmal Noc. Dyspnea, No Edema, No Lt Headedness, No Other Respiratory: No Cough, No Dry, No Shortness of breath, No SOB with excertion, No Wheezing, No Hemoptysis, No Pleuritic Pain, No Sputum, No Other Gastrointestinal: No Nausea, No Vomiting, No Abdominal Pain, No Diarrhea, No Constipation, No Melena, No Hematochezia, No Other Genitourinary: No Dysuria, No Frequency, No Incontinence, No Hematuria, No Retention, No Other Musculoskeletal: No other, No neck pain, No shoulder pain, No arm pain; back pain (low back); No hand pain; leg pain (right leg/hip); No foot pain Skin: No Rash, No Lesions, No Jaundice, No Bruising, No Other Objective Vitals Vital Signs Date Time Temp Pulse Resp B/P (MAP) Pulse Ox O2 Delivery O2 Flow Rate FiO2 10/17/24 13:00 97.9 62 18 159/56 (90) 95 97.9 10/17/24 07:30 Room Air* 0 21 Intake/Output Intake and Output 10/17/24 07:00 Intake Total 800 ml Output Total 700 ml Balance 100 ml Intake Oral 800 ml Output Urine Total 700 ml # Voids 4 General Appearance: Alert, Oriented X3, Cooperative, No acute distress HEENT: Atraumatic Lungs: Clear to auscultation Cardiovascular: Regular rate, Normal S1, Normal S2 Abdomen: Normal bowel sounds, Soft Extremities: Other (pain on extension) Psych/Mental Status: Mental status NL Medications Current Medications Medications Dose Ordered Sig/Osei Route Start Time Stop Time Status Last Admin Dose Admin Sodium Chloride 10 ml Q8HR IV 10/16/24 14:00 10/17/24 12:28 10 ML Acetaminophen/ Hydrocodone Bitart 1 tab Q4HP PRN PO 10/16/24 13:15 10/17/24 06:58 1 TAB Ondansetron HCl 4 mg Q4HP PRN IV 10/16/24 13:15 Docusate Sodium 100 mg BIDPRN PRN PO 10/16/24 13:15 Acetaminophen 650 mg Q6HP PRN PO 10/16/24 13:15 Morphine Sulfate 2 mg Q4HPRN PRN IV 10/16/24 13:15 10/17/24 12:28 2 MG Ketorolac Tromethamine 15 mg Q6HPRN PRN IV 10/16/24 13:15 10/21/24 13:14 10/17/24 08:52 15 MG Hydralazine HCl 10 mg Q6HP PRN IV 10/16/24 16:15 10/17/24 12:27 10 MG Carvedilol 12.5 mg Q12HR PO 10/17/24 10:00 10/17/24 08:53 12.5 MG Clonidine HCl 0.1 mg Q12H PO 10/17/24 19:00 Valsartan 160 mg Q12H PO 10/17/24 19:00 Enoxaparin Sodium 40 mg DAILY SC 10/18/24 10:00 UNV Ergocalciferol 50,000 unit Q7D PO 10/17/24 16:45 UNV Laboratory Results Laboratory Tests 10/17/24 05:39 Chemistry Test 10/17/24 05:39 Albumin 4.2 g/dL (3.2-4.8) Calcium Level 9.4 mg/dL (8.7-10.4) Total Protein 6.7 g/dL (5.7-8.2) LFT Test 10/17/24 05:39 Alanine Aminotransferase (ALT) 15 U/L (7-40) Alkaline Phosphatase 36 U/L (46-116) L Aspartate Amino Transferase (AST) 19 U/L (<34) Total Bilirubin 0.5 mg/dL (0.2-1.0) Urinalysis Test 10/16/24 12:20 Urine Color Light-yellow (Yellow) Urine Clarity Clear (Clear) Urine pH 6.5 (5.0-9.0) Urine Specific [place] 1.015 (1.001-1.035) Urine Protein Negative (Negative) Urine Ketones Negative (Negative) Urine Blood Negative /uL (Negative) Urine Nitrite Negative (Negative) Urine Bilirubin Negative (Negative) Urine Urobilinogen Normal mg/dL (Negative) Urine Leukocyte Esterase Negative /uL (Negative) Urine RBC 1 /hpf (0 - 4) Urine Microscopic WBC 3 /HPF (0-5) Urine Squamous Epithelial Cells None seen /hpf (<5) Urine Bacteria None seen /hpf (None Seen) Urine Glucose Normal mg/dL (Normal) Assessment/Plan Assessment/Plan # Subtle nondisplaced fracture of right acetabulum- Spoke with Dr Virgen, weight bearing as tolerated. 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 Whipple CONS 10/17/24 Transmitted Danilo 16:45 Enoxaparin Sodium PHA 10/18/24 Logged (Lovenox) 10:00 Ergocalciferol PHA 10/17/24 Logged (Vitamin D 50,000 16:45 Date of Service: Oct 17, 2024 Billing Provider: PEDRO DOWLING MD Common Visit Codes: [id number] INP/OBS CARE(HIGH) Secondary Visit Codes: [id number] CARE PLAN 30 MINUTES PEDRO DOWLING MD Oct 17, 2024 16:53
[2024-10-17 17:00] VITALS: BP 144/56; PULSE 65; RESP 18; TEMP 98.2; O2SAT 95
[2024-10-17] MEDS: OXYCODONE W/ ACETAMINOPHEN 5/325MG TABLET PO PRN (17:40)
[2024-10-17] MEDS: ACETAMINOPHEN 325 MG TAB PO PRN (18:42)
[2024-10-17] MEDS: ERGOCALCIFEROL 50,000 UNIT(1.25MG) CAP PO SCH (18:42)
[2024-10-17 21:00] VITALS: BP 142/65; PULSE 62; RESP 17; TEMP 98; O2SAT 94
[2024-10-18] VITALS (7 sets, daily range): BP systolic 126–170; BP diastolic 46–73; PULSE 61–70; RESP 17–18; TEMP 97.3–98.3; O2SAT 94–98
--- NOTE | 2024-10-18 07:40 | DVHINCON2 ---
Date of service: Oct 18, 2024 Reason for Consultation Right hip pain History of Present Illness Mrs. Pereira is an 89 year old female who was brought to the hospital for right hip pain. Patient reports a history of sciatica and thought that this was the same pain as she denied any recent falls or accidents but noted that the pain has been worse this time and has been unable to bear weight on her right side since the pain began. Given that the pain was not improving the patient decided to come in to the hospital for further evaluation. Past Medical History HTN and osteoarthritis Past Surgical History Mastectomy (left), Total hip replacement (bilateral) Family History: FH: cancer G8 MOTHER, Onset:Unknown (bilat breast with bilat masectomy and kidney cancer) G8 FATHER, Onset:Unknown (skin cancer) Hypertension G8 MOTHER, Onset:Unknown Family History Noncontributory Social History Patient denies smoking, ETOH, or illicit substance abuse. Allergies: Uncoded Allergies: SULFA (Allergy, Unknown, 02/07/24) Home Meds Reported Medications Zinc Gluconate (Zinc) 50 Mg Tab, 50 MG PO DAILY, TAB 10/16/24 Omeprazole (Gnp Omeprazole) 20 Mg Tab, 1 TAB PO DAILY, #90 TAB 1 Refill 10/16/24 Acetaminophen (Tylenol 8 Hour Arthritis) 650 Mg Tab, 1300 MG PO Q8HR for Arthritis dose per patient, TAB 02/08/24 Lysine (L-Lysine) 1,000 Mg Tab, 1000 MG PO DAILY, TAB 02/07/24 Benfotiamine (BENFOTIAMINE) 150 Mg Cap, 300 MG PO DAILY, CAP 02/07/24 Zinc Gluconate (ZINC) 100 Mg Tab, 50 MG PO DAILY, TAB 02/07/24 Calcium Citrate-Vitamin D (Calcium Citrate + D 315-5 mg-Mcg) 1 Tab Tab, 1 TAB PO DAILY@BREAKFAST, TAB 02/07/24 Cholecalciferol (VITAMIN D3) 2,000 Unit Tab, 1 TAB PO BID, #30 TAB 5 Refills 02/07/24 [place]-3 Fatty Acids (FISH OIL) 1,000 Mg Cap, 2000 MG PO BID, CAP 02/07/24 Multiple Vitamin (Mvi Tab) 1 Tab Tb, 1 TAB PO DAILY, TAB 02/07/24 Aspirin (Aspir-81) 81 Mg Tab, 1 TAB PO DAILY, #30 TAB 5 Refills 02/07/24 Meclizine Hcl (Meclizine Hcl) 25 Mg Tab, 25 MG PO DAILY for 30 Days, MG 02/07/24 Fenofibrate (Fenofibrate) 160 Mg Tab, 160 MG PO DAILY, TAB 02/07/24 Levothyroxine Sodium (Levothyroxine Sodium) 50 Mcg Tab, 50 MCG PO QAM for 30 Days, MCG 02/07/24 Carvedilol (Coreg) 6.25 Mg Tab, 12.5 MG PO BID, TAB 02/07/24 Valsartan (Diovan) 40 Mg Tab, 160 MG PO BID, TAB 02/07/24 Clonidine Hydrochloride (Clonidine Hcl) 0.1 Mg Tab, 0.1 MG PO BID for 30 Days, MG 02/07/24 Current Medications Current Medications Medications (Trade) Dose Ordered Sig/Osei Route PRN Reason Start Time Stop Time Status Last Admin Clonidine HCl (Catapres Tablet) 0.1 mg BID PO 10/17/24 10:00 10/17/24 16:46 DC 10/17/24 07:45 Valsartan (Diovan) 160 mg BID PO 10/17/24 10:00 10/17/24 16:47 DC 10/17/24 07:46 Carvedilol (Coreg Tablet) 12.5 mg Q12HR PO 10/17/24 10:00 10/17/24 16:48 DC 10/17/24 08:53 Clonidine HCl (Catapres Tablet) 0.1 mg Q12H PO 10/17/24 19:00 10/18/24 07:03 Valsartan (Diovan) 160 mg Q12H PO 10/17/24 19:00 10/18/24 07:03 Enoxaparin Sodium (Lovenox) 40 mg DAILY SC 10/18/24 10:00 Ergocalciferol (Vitamin D 50,000 Unit) 50,000 unit Q7D PO 10/17/24 16:45 10/17/24 18:42 Carvedilol (Coreg Tablet) 12.5 mg Q12H PO 10/17/24 23:00 10/17/24 22:55 Oxycodone/ Acetaminophen (Percocet 5/ 325MG Tablet) 2 tab Q6HP PRN PO MODERATE PAIN (4-6 PAIN SCALE) 10/17/24 17:00 10/18/24 06:20 Review of Systems 10 point review of systems negative except as per HPI Vital Signs Vital Signs Date Time Temp Pulse Resp B/P (MAP) Pulse Ox O2 Delivery O2 Flow Rate FiO2 10/18/24 07:03 169/79 10/18/24 05:00 97.5 63 17 95 97.5 10/17/24 20:00 Room Air* 0 21 Physical Exam General appearance: A&O x4 in no acute distress HEENT: Normal ENT inspection, pharynx normal, TMs normal Neck: Full range of motion, nontender, normal inspection Respiratory: Chest nontender, without accessory muscle use, no respiratory distress Cardiovascular: No edema, no JVD, normal peripheral pulses Gastrointestinal: Soft, nontender, no organomegaly. Musculoskeletal: Right hip range of motion grossly limited with pain on slight movement, no calf tenderness, normal capillary refill, no pedal edema, neurovascularly intact. Skin: Dry, normal color, warm Lymphatic: No adenopathy Labs/Diagnostic Data Labs Test 10/17/24 05:39 10/16/24 12:20 10/16/24 09:09 Range/Units White Blood Count 6.0 # 4.4-10.8 10^3/uL Red Blood Count 4.50 4.0-5.20 10^6/uL Hemoglobin 14.1 12.2-16.2 g/dL Hematocrit 40.6 36.0-46.0 % Mean Corpuscular Volume 90.1 80.0-100.0 fL Mean Corpuscular Hemoglobin 31.3 28.0-32.0 pg Mean Corpuscular Hemoglobin Concent 34.7 32.0-36.0 g/dL Red Cell Distribution Width 13.0 11.8-14.3 % Platelet Count 240 140-450 10^3/uL Mean Platelet Volume 6.6 L 6.9-10.8 fL Neutrophils (%) (Auto) 64.1 37.0-80.0 % Lymphocytes (%) (Auto) 23.5 10.0-50.0 % Monocytes (%) (Auto) 8.0 0.0-12.0 % Eosinophils (%) (Auto) 4.3 0.0-7.0 % Basophils (%) (Auto) 0.1 0.0-2.0 % Neutrophils # (Auto) 3.9 1.6-8.6 10 ^3/uL Lymphocytes # (Auto) 1.4 0.4-5.4 10 ^3/uL Monocytes # (Auto) 0.5 0-1.3 10 ^3/uL Eosinophils # (Auto) 0.3 0-0.8 10 ^3/uL Basophils # (Auto) 0 0-0.2 10 ^3/uL Nucleated Red Blood Cells 0.0 % Sodium Level 138 136-145 mmol/L Potassium Level 4.6 3.5-5.1 mmol/L Chloride Level 105 98-107 mmol/L Carbon Dioxide Level 26 20-31 mmol/L Anion Gap 7 5-15 Blood Urea Nitrogen 18 9-23 mg/dL Creatinine 0.80 0.550-1.02 mg/dL Glomerular Filtration Rate Calc 71 >90 mL/min BUN/Creatinine Ratio 22.5 H 10.0-20.0 Serum Glucose 110 H 74-106 mg/dL Calcium Level 9.4 8.7-10.4 mg/dL Total Bilirubin 0.5 0.2-1.0 mg/dL Aspartate Amino Transferase (AST) 19 <34 U/L Alanine Aminotransferase (ALT) 15 7-40 U/L Alkaline Phosphatase 36 L 46-116 U/L Total Protein 6.7 5.7-8.2 g/dL Albumin 4.2 3.2-4.8 g/dL Urine Color Light-yellow Yellow Urine Clarity Clear Clear Urine pH 6.5 5.0-9.0 Urine Specific [place] 1.015 1.001-1.035 Urine Protein Negative Negative Urine Ketones Negative Negative Urine Blood Negative Negative /uL Urine Nitrite Negative Negative Urine Bilirubin Negative Negative Urine Urobilinogen Normal Negative mg/dL Urine Leukocyte Esterase Negative Negative /uL Urine RBC 1 0 - 4 /hpf Urine Microscopic WBC 3 0-5 /HPF Urine Squamous Epithelial Cells None seen <5 /hpf Urine Bacteria None seen None Seen /hpf Urine Glucose Normal Normal mg/dL POC Glucose 144 H 70-106 mg/dl right hip x-ray reviewed and demonstrated: Nonspecific lucency associated with the intertrochanteric right proximal femur. This is most likely within normal limits but can be seen in loosening/particle disease. Hip CT scan reviewed and demonstrated: Postsurgical changes of right hip bipolar hemiarthroplasty. Questionable subtle cortical deformity of the junction of the right superior pubic ramus and anterior right acetabulum. Subtle nondisplaced fracture. No other evidence of acute fracture. No definite CT evidence for prosthesis loosening or other prosthesis complication. Fatty atrophy of the gluteus medius and minimus muscles Assessment Right nondisplaced pubic rami and acetabulum fracture. Plan/Recommendation I had a lengthy discussion with the patient and after discussing her case and reviewing her imaging studies with Dr. Virgen we have recommended against any surgical intervention at this time given her fracture is stable and nondisplaced and instead we recommend continuing with conservative treatment with pain control. I advised the patient to remain PWB for 4 weeks with the assistance of a walker and may gradually start WBAT after the 4 weeks with the assistance of her walker. I also instructed the patient to follow up with our office in approximately 2 weeks so we may order updated imaging studies for further evaluation of her fracture. Patient understood and agreed. Thank you for allowing us to participate in the care of your patient. Plan discussed with: Patient WILL,JENDAVID FAY Oct 18, 2024 07:40
[2024-10-18] MEDS: ENOXAPARIN SOD 40 MG/0.4 ML SYRINGE SC SCH (09:56)
--- NOTE | 2024-10-18 13:01 | DVHPN2 ---
Subjective Seen and examined at bedside, Ortho consult reviewed. Reviewed imaging with the patients son. Patient would like to go to SNF for Rehab. Discharge to SNF tomorrow Monday Changes from previous H/P or p: No Changes Eyes: No Pain, No Vision change, No Conjunctivae inflammation, No Eyelid inflammation, No Other, No Redness ENT: No Ear pain, No Ear discharge, No Nose pain, No Nose discharge, No Nose congestion, No Mouth pain, No Mouth swelling, No Throat pain, No Throat swelling, No Other Cardiovascular: No Chest Pain, No Palpitations, No Orthopnea, No Paroxysmal Noc. Dyspnea, No Edema, No Lt Headedness, No Other Respiratory: No Cough, No Dry, No Shortness of breath, No SOB with excertion, No Wheezing, No Hemoptysis, No Pleuritic Pain, No Sputum, No Other Gastrointestinal: No Nausea, No Vomiting, No Abdominal Pain, No Diarrhea, No Constipation, No Melena, No Hematochezia, No Other Genitourinary: No Dysuria, No Frequency, No Incontinence, No Hematuria, No Retention, No Other Musculoskeletal: No other, No neck pain, No shoulder pain, No arm pain; back pain (low back); No hand pain; leg pain (right leg/hip); No foot pain Skin: No Rash, No Lesions, No Jaundice, No Bruising, No Other Objective Vitals Vital Signs Date Time Temp Pulse Resp B/P (MAP) Pulse Ox O2 Delivery O2 Flow Rate FiO2 10/18/24 11:17 64 16 159/59 10/18/24 09:00 98.3 96 98.3 10/17/24 20:00 Room Air* 0 21 Intake/Output Intake and Output 10/18/24 07:00 Intake Total 1125 ml Balance 1125 ml Intake Oral 1125 ml # Voids 6 # Bowel Movements 1 General Appearance: Alert, Oriented X3, Cooperative, No acute distress HEENT: Atraumatic Lungs: Clear to auscultation Cardiovascular: Regular rate, Normal S1, Normal S2 Abdomen: Normal bowel sounds, Soft Extremities: Other (pain on extension) Psych/Mental Status: Mental status NL Medications Current Medications Medications Dose Ordered Sig/Osei Route Start Time Stop Time Status Last Admin Dose Admin Sodium Chloride 10 ml Q8HR IV 10/16/24 14:00 10/18/24 06:08 10 ML Ondansetron HCl 4 mg Q4HP PRN IV 10/16/24 13:15 Docusate Sodium 100 mg BIDPRN PRN PO 10/16/24 13:15 Acetaminophen 650 mg Q6HP PRN PO 10/16/24 13:15 10/17/24 18:42 650 MG Morphine Sulfate 2 mg Q4HPRN PRN IV 10/16/24 13:15 10/18/24 11:17 2 MG Hydralazine HCl 10 mg Q6HP PRN IV 10/16/24 16:15 10/18/24 08:43 10 MG Clonidine HCl 0.1 mg Q12H PO 10/17/24 19:00 10/18/24 07:03 0.1 MG Valsartan 160 mg Q12H PO 10/17/24 19:00 10/18/24 07:03 160 MG Enoxaparin Sodium 40 mg DAILY SC 10/18/24 10:00 10/18/24 09:56 40 MG Ergocalciferol 50,000 unit Q7D PO 10/17/24 16:45 10/17/24 18:42 50,000 UNIT Carvedilol 12.5 mg Q12H PO 10/17/24 23:00 10/18/24 11:14 12.5 MG Oxycodone/ Acetaminophen 2 tab Q6HP PRN PO 10/17/24 17:00 10/18/24 06:20 2 TAB Tramadol HCl 50 mg Q4HP PRN PO 10/18/24 12:45 UNV Laboratory Results Laboratory Tests 10/17/24 05:39 Urinalysis Test 10/16/24 12:20 Urine Color Light-yellow (Yellow) Urine Clarity Clear (Clear) Urine pH 6.5 (5.0-9.0) Urine Specific [place] 1.015 (1.001-1.035) Urine Protein Negative (Negative) Urine Ketones Negative (Negative) Urine Blood Negative /uL (Negative) Urine Nitrite Negative (Negative) Urine Bilirubin Negative (Negative) Urine Urobilinogen Normal mg/dL (Negative) Urine Leukocyte Esterase Negative /uL (Negative) Urine RBC 1 /hpf (0 - 4) Urine Microscopic WBC 3 /HPF (0-5) Urine Squamous Epithelial Cells None seen /hpf (<5) Urine Bacteria None seen /hpf (None Seen) Urine Glucose Normal mg/dL (Normal) Assessment/Plan Assessment/Plan # Subtle nondisplaced fracture of right acetabulum- Spoke with Dr Virgen, partial weight bearing as tolerated. SNF eval tomorrow. # Hypertensive Heart Disease w/ possible chronic diastolic CHF- Monitor and adjust meds as tolerated # H/o of Right Hemiarthoplasty # Goals of care discussion >18 mins DNR/DNI Plan discussed with: Patient, Son My Orders Orders - PEDRO DOWLING MD Procedure Category Date Status Time *Consult Dr. Whipple CONS 10/17/24 Transmitted Danilo 16:45 Enoxaparin Sodium PHA 10/18/24 In Process (Lovenox) 10:00 Ergocalciferol PHA 10/17/24 In Process (Vitamin D 50,000 16:45 Mri R Hip Wo Contrast MRI 10/17/24 Logged 16:48 Oxycodone W/ Acet PHA 10/17/24 In Process 5/325mg Tab (Percocet 17:00 Tramadol Hcl (Ultram) PHA 10/18/24 Logged 12:45 * Cutter Grinder Operator CONS 10/18/24 Transmitted Consult Date of Service: Oct 18, 2024 Billing Provider: PEDRO DOWLING MD Common Visit Codes: [id number] INP/OBS CARE(MOD) PEDRO DOWLING MD Oct 18, 2024 13:01
[2024-10-18] MEDS: traMADol HCL 50 MG TAB PO PRN (14:28)
[2024-10-19] VITALS (8 sets, daily range): BP systolic 110–158; BP diastolic 44–61; PULSE 63–91; RESP 16–18; TEMP 97.8–99.2; O2SAT 93–96
--- NOTE | 2024-10-19 13:56 | DVHPN2 ---
Reviewed: Care Plan, H&P, Labs, Medications, Previous Orders, Radiology Changes from previous H/P or p: No Changes Eyes: No Pain, No Vision change, No Conjunctivae inflammation, No Eyelid inflammation, No Other, No Redness ENT: No Ear pain, No Ear discharge, No Nose pain, No Nose discharge, No Nose congestion, No Mouth pain, No Mouth swelling, No Throat pain, No Throat swelling, No Other Cardiovascular: No Chest Pain, No Palpitations, No Orthopnea, No Paroxysmal Noc. Dyspnea, No Edema, No Lt Headedness, No Other Respiratory: No Cough, No Dry, No Shortness of breath, No SOB with excertion, No Wheezing, No Hemoptysis, No Pleuritic Pain, No Sputum, No Other Gastrointestinal: No Nausea, No Vomiting, No Abdominal Pain, No Diarrhea, No Constipation, No Melena, No Hematochezia, No Other Genitourinary: No Dysuria, No Frequency, No Incontinence, No Hematuria, No Retention, No Other Musculoskeletal: No other, No neck pain, No shoulder pain, No arm pain; back pain (low back); No hand pain; leg pain (right leg/hip); No foot pain Skin: No Rash, No Lesions, No Jaundice, No Bruising, No Other Objective Vitals Vital Signs Date Time Temp Pulse Resp B/P (MAP) Pulse Ox O2 Delivery O2 Flow Rate FiO2 10/19/24 13:00 98.1 71 18 136/52 (80) 96 98.1 10/19/24 08:00 Room Air* 0 21 Intake/Output Intake and Output 10/19/24 06:59 Intake Total 1125 ml Balance 1125 ml Intake Oral 1125 ml # Voids 6 General Appearance: Alert, Oriented X3, Cooperative, No acute distress HEENT: Atraumatic Lungs: Clear to auscultation Cardiovascular: Regular rate, Normal S1, Normal S2 Abdomen: Normal bowel sounds, Soft Extremities: Other (pain on extension) Psych/Mental Status: Mental status NL Medications Current Medications Medications Dose Ordered Sig/Osei Route Start Time Stop Time Status Last Admin Dose Admin Sodium Chloride 10 ml Q8HR IV 10/16/24 14:00 10/19/24 13:13 10 ML Ondansetron HCl 4 mg Q4HP PRN IV 10/16/24 13:15 Docusate Sodium 100 mg BIDPRN PRN PO 10/16/24 13:15 Acetaminophen 650 mg Q6HP PRN PO 10/16/24 13:15 10/17/24 18:42 650 MG Morphine Sulfate 2 mg Q4HPRN PRN IV 10/16/24 13:15 10/18/24 16:39 2 MG Hydralazine HCl 10 mg Q6HP PRN IV 10/16/24 16:15 10/19/24 01:28 10 MG Clonidine HCl 0.1 mg Q12H PO 10/17/24 19:00 10/19/24 06:58 0.1 MG Valsartan 160 mg Q12H PO 10/17/24 19:00 10/19/24 06:57 160 MG Enoxaparin Sodium 40 mg DAILY SC 10/18/24 10:00 10/19/24 10:18 40 MG Ergocalciferol 50,000 unit Q7D PO 10/17/24 16:45 10/17/24 18:42 50,000 UNIT Carvedilol 12.5 mg Q12H PO 10/17/24 23:00 10/19/24 10:17 12.5 MG Oxycodone/ Acetaminophen 2 tab Q6HP PRN PO 10/17/24 17:00 10/19/24 10:17 2 TAB Tramadol HCl 50 mg Q4HP PRN PO 10/18/24 12:45 10/18/24 19:17 50 MG Laboratory Results Laboratory Tests 10/17/24 05:39 Urinalysis Test 10/16/24 12:20 Urine Color Light-yellow (Yellow) Urine Clarity Clear (Clear) Urine pH 6.5 (5.0-9.0) Urine Specific [place] 1.015 (1.001-1.035) Urine Protein Negative (Negative) Urine Ketones Negative (Negative) Urine Blood Negative /uL (Negative) Urine Nitrite Negative (Negative) Urine Bilirubin Negative (Negative) Urine Urobilinogen Normal mg/dL (Negative) Urine Leukocyte Esterase Negative /uL (Negative) Urine RBC 1 /hpf (0 - 4) Urine Microscopic WBC 3 /HPF (0-5) Urine Squamous Epithelial Cells None seen /hpf (<5) Urine Bacteria None seen /hpf (None Seen) Urine Glucose Normal mg/dL (Normal) Labs and/or images reviewed: Labs reviewed by me, Image(s) reviewed by me Assessment/Plan Assessment/Plan Covering for Dr. Villegas # Subtle nondisplaced fracture of right acetabulum- Spoke with Dr Virgen, partial weight bearing as tolerated. SNF eval tomorrow. # Hypertensive Heart Disease w/ possible chronic diastolic CHF- Monitor and adjust meds as tolerated # H/o of Right Hemiarthoplasty Patient is DNR Time spent 20 minutes discussing code status Plan discussed with: Patient Date of Service: Oct 19, 2024 Billing Provider: MARY KATE RIZVI MD Common Visit Codes: [id number] INP/OBS CARE(HIGH) MARY KATE RIZVI MD Oct 19, 2024 13:56
[2024-10-19] MEDS: FAMOTIDINE 20 MG TAB PO ONE (14:23)
[2024-10-20 01:00] VITALS: BP 124/47; PULSE 83; RESP 18; TEMP 99.5; O2SAT 94
[2024-10-20 05:00] VITALS: BP 102/31; PULSE 68; RESP 16; TEMP 98.7; O2SAT 91
[2024-10-20 08:00] VITALS: PULSE 68; RESP 18; O2SAT 95
--- NOTE | 2024-10-20 08:00 | DVHPN2 ---
Reviewed: Care Plan, H&P, Labs, Medications, Previous Orders, Radiology Changes from previous H/P or p: No Changes Eyes: No Pain, No Vision change, No Conjunctivae inflammation, No Eyelid inflammation, No Other, No Redness ENT: No Ear pain, No Ear discharge, No Nose pain, No Nose discharge, No Nose congestion, No Mouth pain, No Mouth swelling, No Throat pain, No Throat swelling, No Other Cardiovascular: No Chest Pain, No Palpitations, No Orthopnea, No Paroxysmal Noc. Dyspnea, No Edema, No Lt Headedness, No Other Respiratory: No Cough, No Dry, No Shortness of breath, No SOB with excertion, No Wheezing, No Hemoptysis, No Pleuritic Pain, No Sputum, No Other Gastrointestinal: No Nausea, No Vomiting, No Abdominal Pain, No Diarrhea, No Constipation, No Melena, No Hematochezia, No Other Genitourinary: No Dysuria, No Frequency, No Incontinence, No Hematuria, No Retention, No Other Musculoskeletal: No other, No neck pain, No shoulder pain, No arm pain; back pain (low back); No hand pain; leg pain (right leg/hip); No foot pain Skin: No Rash, No Lesions, No Jaundice, No Bruising, No Other Objective Vitals Vital Signs Date Time Temp Pulse Resp B/P (MAP) Pulse Ox O2 Delivery O2 Flow Rate FiO2 10/20/24 06:17 136/58 10/20/24 05:00 98.7 68 16 91 98.7 10/19/24 20:00 Room Air* 0 21 Intake/Output Intake and Output 10/20/24 07:00 Intake Total 1180 ml Balance 1180 ml Intake Oral 1180 ml # Voids 6 General Appearance: Alert, Oriented X3, Cooperative, No acute distress HEENT: Atraumatic Lungs: Clear to auscultation Cardiovascular: Regular rate, Normal S1, Normal S2 Abdomen: Normal bowel sounds, Soft Extremities: Other (pain on extension) Psych/Mental Status: Mental status NL Medications Current Medications Medications Dose Ordered Sig/Osei Route Start Time Stop Time Status Last Admin Dose Admin Sodium Chloride 10 ml Q8HR IV 10/16/24 14:00 10/20/24 06:20 10 ML Ondansetron HCl 4 mg Q4HP PRN IV 10/16/24 13:15 Docusate Sodium 100 mg BIDPRN PRN PO 10/16/24 13:15 Acetaminophen 650 mg Q6HP PRN PO 10/16/24 13:15 10/17/24 18:42 650 MG Morphine Sulfate 2 mg Q4HPRN PRN IV 10/16/24 13:15 10/18/24 16:39 2 MG Hydralazine HCl 10 mg Q6HP PRN IV 10/16/24 16:15 10/19/24 01:28 10 MG Clonidine HCl 0.1 mg Q12H PO 10/17/24 19:00 10/20/24 06:16 0.1 MG Valsartan 160 mg Q12H PO 10/17/24 19:00 10/20/24 06:17 160 MG Enoxaparin Sodium 40 mg DAILY SC 10/18/24 10:00 10/19/24 10:18 40 MG Ergocalciferol 50,000 unit Q7D PO 10/17/24 16:45 10/17/24 18:42 50,000 UNIT Carvedilol 12.5 mg Q12H PO 10/17/24 23:00 10/19/24 22:33 12.5 MG Oxycodone/ Acetaminophen 2 tab Q6HP PRN PO 10/17/24 17:00 10/20/24 02:49 2 TAB Tramadol HCl 50 mg Q4HP PRN PO 10/18/24 12:45 10/18/24 19:17 50 MG Famotidine 20 mg DAILY PO 10/20/24 10:00 Laboratory Results Laboratory Tests 10/17/24 05:39 Urinalysis Test 10/16/24 12:20 Urine Color Light-yellow (Yellow) Urine Clarity Clear (Clear) Urine pH 6.5 (5.0-9.0) Urine Specific [place] 1.015 (1.001-1.035) Urine Protein Negative (Negative) Urine Ketones Negative (Negative) Urine Blood Negative /uL (Negative) Urine Nitrite Negative (Negative) Urine Bilirubin Negative (Negative) Urine Urobilinogen Normal mg/dL (Negative) Urine Leukocyte Esterase Negative /uL (Negative) Urine RBC 1 /hpf (0 - 4) Urine Microscopic WBC 3 /HPF (0-5) Urine Squamous Epithelial Cells None seen /hpf (<5) Urine Bacteria None seen /hpf (None Seen) Urine Glucose Normal mg/dL (Normal) Labs and/or images reviewed: Labs reviewed by me, Image(s) reviewed by me Assessment/Plan Assessment/Plan Covering for Dr. Villegas # Subtle nondisplaced fracture of right acetabulum- Spoke with Dr Virgen, partial weight bearing as tolerated. SNF eval tomorrow. # Hypertensive Heart Disease w/ possible chronic diastolic CHF- Monitor and adjust meds as tolerated # H/o of Right Hemiarthoplasty Patient is DNR Time spent 20 minutes discussing code status at bedside and requesting patient to be discharged to [facility] acute Plan discussed with: Patient My Orders Orders - MARY KATE RIZVI MD Procedure Category Date Status Time Famotidine Tablet PHA 10/20/24 In Process (Pepcid Tablet) 10:00 Date of Service: Oct 20, 2024 Billing Provider: MARY KATE RIZVI MD Common Visit Codes: [id number] INP/OBS CARE(HIGH) MARY KATE RIZVI MD Oct 20, 2024 07:59
--- NOTE | 2024-10-20 08:03 | DVHDS2 ---
Discharge Summary Date of Admission Oct 16, 2024 at 13:03 Date of Discharge: Oct 20, 2024 Admitting Diagnosis Right hip pain Wounds: Closed fracture right acetabulum Labs/Diagnostic Data: Laboratory Results Test 10/17/24 05:39 10/16/24 12:20 10/16/24 09:09 White Blood Count 6.0 10^3/uL (4.4-10.8) Red Blood Count 4.50 10^6/uL (4.0-5.20) Hemoglobin 14.1 g/dL (12.2-16.2) Hematocrit 40.6 % (36.0-46.0) Mean Corpuscular Volume 90.1 fL (80.0-100.0) Mean Corpuscular Hemoglobin 31.3 pg (28.0-32.0) Mean Corpuscular Hemoglobin Concent 34.7 g/dL (32.0-36.0) Red Cell Distribution Width 13.0 % (11.8-14.3) Platelet Count 240 10^3/uL (140-450) Mean Platelet Volume 6.6 fL (6.9-10.8) Neutrophils (%) (Auto) 64.1 % (37.0-80.0) Lymphocytes (%) (Auto) 23.5 % (10.0-50.0) Monocytes (%) (Auto) 8.0 % (0.0-12.0) Eosinophils (%) (Auto) 4.3 % (0.0-7.0) Basophils (%) (Auto) 0.1 % (0.0-2.0) Neutrophils # (Auto) 3.9 10 ^3/uL (1.6-8.6) Lymphocytes # (Auto) 1.4 10 ^3/uL (0.4-5.4) Monocytes # (Auto) 0.5 10 ^3/uL (0-1.3) Eosinophils # (Auto) 0.3 10 ^3/uL (0-0.8) Basophils # (Auto) 0 10 ^3/uL (0-0.2) Nucleated Red Blood Cells 0.0 % Sodium Level 138 mmol/L (136-145) Potassium Level 4.6 mmol/L (3.5-5.1) Chloride Level 105 mmol/L (98-107) Carbon Dioxide Level 26 mmol/L (20-31) Anion Gap 7 (5-15) Blood Urea Nitrogen 18 mg/dL (9-23) Creatinine 0.80 mg/dL (0.550-1.02) Glomerular Filtration Rate Calc 71 mL/min (>90) BUN/Creatinine Ratio 22.5 (10.0-20.0) Serum Glucose 110 mg/dL (74-106) Calcium Level 9.4 mg/dL (8.7-10.4) Total Bilirubin 0.5 mg/dL (0.2-1.0) Aspartate Amino Transferase (AST) 19 U/L (<34) Alanine Aminotransferase (ALT) 15 U/L (7-40) Alkaline Phosphatase 36 U/L (46-116) Total Protein 6.7 g/dL (5.7-8.2) Albumin 4.2 g/dL (3.2-4.8) Urine Color Light-yellow (Yellow) Urine Clarity Clear (Clear) Urine pH 6.5 (5.0-9.0) Urine Specific [place] 1.015 (1.001-1.035) Urine Protein Negative (Negative) Urine Ketones Negative (Negative) Urine Blood Negative /uL (Negative) Urine Nitrite Negative (Negative) Urine Bilirubin Negative (Negative) Urine Urobilinogen Normal mg/dL (Negative) Urine Leukocyte Esterase Negative /uL (Negative) Urine RBC 1 /hpf (0 - 4) Urine Microscopic WBC 3 /HPF (0-5) Urine Squamous Epithelial Cells None seen /hpf (<5) Urine Bacteria None seen /hpf (None Seen) Urine Glucose Normal mg/dL (Normal) POC Glucose 144 mg/dl (70-106) Other Laboratory Tests 10/17/24 05:39 Brief Hx & Hospital Course: 89-year-old female with a history of hypertension previous right hemiarthroplasty had a mechanical fall admitted found to have subtle nondisplaced fracture right acetabulum. Orthopedic Dr Virgen advised conservative management with the pain medication physical therapy. The patient being discharged to [facility] for rehab per husbands request. Dr Villegas follow the patient in the SNF Consults/Reason for consult Orthopedic Dr Virgen Operations or Procedures CT right hip Condition at Discharge: Fair Final Diagnosis/Problems List # Subtle nondisplaced fracture of right acetabulum- Spoke with Dr Virgen, partial weight bearing as tolerated. SNF eval tomorrow. # Hypertensive Heart Disease w/ possible chronic diastolic CHF- Monitor and adjust meds as tolerated # H/o of Right Hemiarthoplasty Discharge Disposition: Group Home Facility Discharge Instruct/Medications Diet: Cardiac 2g Na,low cholest Activity: Light activity Follow Up/Referral: Follow up with the shelter Medications: see list 35 (Time taken for discharge summary 35 minutes) Discharge Statement: "Patient was advised to return to the ER or call 911 if any headaches, dizziness, shortness of breath, chest pain, abdominal pain, bleeding, fevers, or worsening of medical condition. Patient was counseled about treatment plan, medications, possible side effects, patientverbalized understanding. All questions were answered to the best of my ability. This discharge took greater then 30 minutes in planning, reviewing documentation, counseling the patient, and discussing with other team members." ASSESSMENT ASSESSMENT Hospital Course Improved Assessment # Subtle nondisplaced fracture of right acetabulum- Spoke with Dr Virgen, partial weight bearing as tolerated. SNF eval tomorrow. # Hypertensive Heart Disease w/ possible chronic diastolic CHF- Monitor and adjust meds as tolerated # H/o of Right Hemiarthoplasty Date of Service: Oct 20, 2024 Billing Provider: MARY KATE RIZVI MD Common Visit Codes: 73651-JKA/OBS DISCH DAY >30min MARY KATE RIZVI MD Oct 20, 2024 08:03
[2024-10-20 08:26] VITALS: BP 108/65; PULSE 68; RESP 18; TEMP 97.9; O2SAT 95
[2024-10-20 08:38] VITALS: BP 108/65; PULSE 68; RESP 18; TEMP 97.9; O2SAT 95
[2024-10-20] MEDS: FAMOTIDINE 20 MG TAB PO SCH (10:00)
[2024-10-20 13:00] VITALS: BP 130/67; PULSE 61; RESP 16; TEMP 98.7; O2SAT 97
== END 2024-10-20 14:42 | DRG 536 ==
LOC: EDBD 08:17 → ER 08:17 → OVERFLOW 13:03 → ER 13:04 → CENTRAL 13:58
PROVIDERS: ADMIT Internal Medicine; ATTEND Internal Medicine
DX: S32.491A Other specified fracture of right acetabulum, initial encounter for closed fracture (principal); I50.32 Chronic diastolic (congestive) heart failure; Z66 Do not resuscitate; I11.9 Hypertensive heart disease without heart failure; M54.40 Lumbago with sciatica, unspecified side; Z96.643 Presence of artificial hip joint, bilateral; M81.0 Age-related osteoporosis without current pathological fracture; Z90.12 Acquired absence of left breast and nipple; Z82.49 Family history of ischemic heart disease and other diseases of the circulatory system; Z80.8 Family history of malignant neoplasm of other organs or systems; Z88.2 Allergy status to sulfonamides; W18.39XA Other fall on same level, initial encounter; Y93.89 Activity, other specified; Y92.89 Other specified places as the place of occurrence of the external cause; Y99.8 Other external cause status
CPT/HCPCS: 36415; 72100; 73502; 73700; 80048; 80053; 81001; 82962; 85025; 96374; 96375; 97110; 97116; 97163; G0378; J1885; J2405